=== PATIENT | female | born 1970 | race Caucasian/White ===

== ENCOUNTER 2022-05-23 15:35 | Outpatient (CLI) | payer BC, SELFPAY ==
--- NOTE | 2022-05-23 15:42 | ECG_ITS ---
Measurements Intervals [place] Rate: 90 P: 45 WV: 149 QRS: 52 QRSD: 83 T: 31 QT: 362 QTc: 444 Interpretive Statements SINUS RHYTHM BASELINE ARTIFACT- II, III NORMAL ECG NO PREVIOUS ECG AVAILABLE FOR COMPARISON Electronically Signed On 05-23-2022 16:12:25 TAPE RECORDER REPAIRER by Franklyn Olivarez D.O.
== END 2022-05-23 15:36 | disposition home or self-care (01) ==
LOC: ANHCARD 15:38
PROVIDERS: PCP Family Medicine; Visit Provider Physician Assistant Medical
DX: R00.2 Palpitations (principal)
CPT/HCPCS: 93005

== ENCOUNTER 2023-10-31 07:46 | Outpatient (CLI) | payer BC, SELFPAY ==
--- NOTE | ~2023-10-31 | MMUS_ITS ---
EXAMINATION: MM diagnostic ella BI w maykel, US breast LT limited HISTORY: Recent palpable lower inner left breast lump, no longer palpable TECHNIQUE: 3-D tomosynthesis images of the bilateral breasts were performed and synthetic 2-D images were generated. CAD analysis was submitted and interpreted. High resolution of the left breast ultras ound was performed. COMPARISON: 09/16/2017 FINDINGS: MAMMOGRAPHIC FINDINGS: There are scattered fibroglandular densities. Parenchymal pattern of both breasts is unchanged. No suspicious mass lesion, distortion, or microcalc ifications seen. ULTRASOUND: Sonographic imaging at the 7:00-8:00 position of the left breast was performed, 8 cm from the nipple. No solid or cystic lesion identified. No sonographic abnormality seen in the region scanned. IMPRESSION: No evidence for malignancy. No mammographic or sonographic correlate seen at the area of clinical co ncern at the lower, inner left breast. BI-RADS Category 1: Negative Reviewed, dictated and finalized at [facility]. IMPRESSION: No evidence for malignancy. No mammographic or sonographic correlate seen at t he area of clinical concern at the lower, inner left breast. BI-RADS Category 1: Negative
== END 2023-10-31 07:47 ==
LOC: MICIMG 07:48
PROVIDERS: PCP Family Medicine; Visit Provider Student in an Organized Health Care Education/Training Program
DX: N63.20 Unspecified lump in the left breast, unspecified quadrant (principal)
CPT/HCPCS: 76642; 77062; 77066; G0279

== ENCOUNTER 2023-12-11 14:26 | Emergency (ER) | payer BC, SELFPAY ==
[2023-12-11 14:31] VITALS: BP 151/92; PULSE 96; RESP 16; TEMP 36.5; O2SAT 100
--- NOTE | 2023-12-11 15:11 | ED.URI ---
HPI - URI/Sore Throat General Chief Complaint: Upper Respiratory Infection Stated Complaint: Sore Throat/Ear Pain Time Seen by Provider: 12/11/23 15:21 Source: patient and RN notes reviewed Mode of arrival: ambulatory Limitations: no limitations History of Present Illness HPI Narrative: 53-year-old female presents concern for 1 day history of sore throat, nasal congestion, runny nose, ear pain. She reports chills. She reports she recently flew on an airplane home from [facility]. She denies fever MD elicited complaint: cough and sore throat Related Data Home Medications Medication Instructions Recorded Confirmed calcium carbonate 550 mg-magnesium 2 tablet PO Q6H 08/16/20 11/27/23 hydroxide 110 mg chewable tablet lactobacillus combination no.8 3 3,000 mmu cells PO DAILY 08/16/20 11/27/23 billion cell capsule (Adult Probiotic) multivitamin 1 tablet PO DAILY 08/16/20 11/27/23 omega-3 fatty acids 1,000 mg 1,000 mg PO DAILY 08/16/20 11/27/23 capsule (Super Kemp-3) Allergies Allergy/AdvReac Type Severity Reaction Status Date / Time No Known Allergies Allergy Verified 11/27/23 15:23 Review of Systems Review of Systems: CONSTITUTIONAL: Denies malaise, sweats, or fever. Reports chills EYES: Denies visual changes, redness, or discharge. ENT: Reports rhinorrhea, congestion, otalgia and sore throat. CARDIOVASCULAR: Denies chest pain, palpitations, or edema. RESPIRATORY: Reports cough. Denies dyspnea. GASTROINTESTINAL: Denies abdominal pain, nausea, vomiting, diarrhea SKIN: Denies rash or itching. MUSCULOSKELETAL: Denies myalgia. NEUROLOGIC: Denies headache. All systems reviewed & are unremarkable except as noted in HPI and below PMFSH Past Medical History Medical History Anxiety Benign hypertension Depression Diabetes Hypercholesterolemia Hyperlipidemia LDL goal <100 MVP (mitral valve prolapse) DELMER (obstructive sleep apnea) Ulcer (~1988) Uncontrolled type 2 diabetes mellitus with hyperglycemia Vaginal candidiasis Family History Family History Mother Hypertension Sibling Hypertension Grandparent Family history of malignant neoplasm of breast Diabetes mellitus Family history of malignant neoplasm of breast in first degree relative Family history of congestive heart failure Father Family history of aortic aneurysm Other Family history of pancreatic cancer Social History Social History Smoking status: Never smoker Second hand tobacco smoke exposure: No Alcohol intake: current Substance use: never Substance use type: does not use Lack of Transportation: No Lack of Food: Never True Current Housing: I Have Housing Concerned About Future Housing: No Difficulty Paying Gas/Electric Bills: No Difficulty Paying for Meds: No Currently Unemployed: No Education: High School Diploma/GED Difficulty w/ Childcare or Family Care: No Living arrangements: with family Gender identity (if verbalized by the patient): Female Sexual Orientation (if Verbalized by the Patient): Straight or Heterosexual Spiritual care concerns: No Agree to blood products: Yes Comments At time of signature, agree with nursing past medical, surgical, social and family history. There is no relevant family history pertinent to the presenting complaint Exam Narrative: GENERAL: Well-appearing, well-nourished, and in no acute distress. HEAD: Normocephalic EYES: PERRLA, conjunctivae clear ENT: Nares clear, turbinates edematous and erythematous, clear discharge. Mucous membranes moist. TM pearly lee with dull light reflex bilaterally; no tragal tenderness. Oropharynx not erythematous without lesions. Tonsils not enlarged and without exudate, no drooling, no hoarseness, no trismus, uvula midline. NECK: Suppl
[2023-12-11 15:22] LABS: EDINFLUASCREEN Negative; EDINFLUBSCREEN Negative; EDSTREPNEGPOS1 Presumptive Negative
== END 2023-12-11 15:30 | disposition home or self-care (01) ==
PROVIDERS: Emergency Provider Nurse Practitioner; PCP Family Medicine
DX: U07.1 COVID-19 (principal); I10 Essential (primary) hypertension; E11.9 Type 2 diabetes mellitus without complications; E78.00 Pure hypercholesterolemia, unspecified; E78.5 Hyperlipidemia, unspecified; I34.1 Nonrheumatic mitral (valve) prolapse
CPT/HCPCS: 87081; 87426; 87804; 87880; 99213; G0463